=== PATIENT | male | born 1965 | race Two or more races ===

== ENCOUNTER 2022-07-12 20:28 | Inpatient (IN) | payer OTHER, MEDICAID ==
[~2022-07-12] VITALS: Ht 177.8 cm; Wt 81.8 kg
[2022-07-12 21:52] LABS: Basophils # (auto) 0 10 ^3/uL (0-0.2); Basophils % (auto) 0.4 % (0.0-2.0); Eosinophils # (auto) 0 10 ^3/uL (0-0.8); Monocytes # (auto) 0.2 10 ^3/uL (0-1.3); Nucleated Red Blood Cells % 0.4 %
[2022-07-12 21:54] LABS: Eosinophils % (auto) 0.1 % (0.0-7.0); Hematocrit 26.6 % (41.0-53.0); Hemoglobin 7.7 g/dL (13.5-17.5); Lymphocytes # (auto) 0.6 10 ^3/uL (0.4-5.4); Lymphocytes % (auto) 6.8 % (10.0-50.0); Mean Corpuscular Hemoglobin 17.8 pg (28.0-32.0); Mean Corpuscular Hgb Conc. 28.9 g/dL (32.0-36.0); Mean Corpuscular Volume 61.4 fL (80.0-100.0); Monocytes % (auto) 1.9 % (0.0-12.0); Neutrophils # (auto) 7.8 10 ^3/uL (1.6-8.6); Neutrophils % (auto) 90.8 % (37.0-80.0); Red Blood Cells 4.32 10^6/uL (4.5-5.90); White Blood Cell 8.6 10^3/uL (4.4-10.8)
[2022-07-12 22:10] LABS: Albumin 2.4 g/dL (3.4-5.0); BUN/Creatinine Ratio 24.6 (10.0-20.0); Calcium 8.3 mg/dL (8.5-10.1)
[2022-07-12 22:13] LABS: Bilirubin, Total 0.4 mg/dL (0.2-1.0); Total Protein 7.4 g/dL (6.4-8.2)
[2022-07-12 22:15] LABS: Lactic Acid w/Reflex 2.3 mmol/L (0.4-2.0)
[2022-07-13] MEDS ORDERED: diphenhdrAMINE HCL 25 MG CAP PO PRN (00:15)
[2022-07-13] MEDS ORDERED: INSULIN LISPRO (HUMAN) 100 UNITS/ML ML SC ONE ×2 (00:45→03:00)
[2022-07-13] MEDS ORDERED: VANCOMYCIN 1GM/250ML 250 ML IV ONE (03:00)
[2022-07-13] MEDS ORDERED: SODIUM CHLORIDE 0.9% 2,450 ML IV ONE (03:00)
[2022-07-13] MEDS ORDERED: PIPERACILLIN-TAZOB 3.375GM 100 ML IV ONE (03:00)
[2022-07-13 04:41] LABS: % Iron Saturation 3.8 % (20-55)
[2022-07-13] MEDS ORDERED: IBUPROFEN 600 MG TAB PO PRN (04:45)
[2022-07-13] MEDS ORDERED: NITROGLYCERIN 0.4 MG SL TAB SL PRN (04:45)
[2022-07-13] MEDS ORDERED: VANCOMYCIN PER PHARMACY 0 MG IV SCH (04:45)
[2022-07-13] MEDS ORDERED: FUROSEMIDE 40 MG/4 ML VIAL IV ONE (04:45)
[2022-07-13] MEDS ORDERED: HYDROcodone-ACET 5/325MG TAB PO PRN (04:45)
[2022-07-13] MEDS ORDERED: ONDANSETRON HCL 4 MG/2 ML VIAL IV PRN (04:45)
[2022-07-13] MEDS ORDERED: DEXTROSE (50%) 50ML SYRG IV PRN (04:45)
[2022-07-13] MEDS ORDERED: MORPHINE SULFATE INJ 2 MG/ml SYRG IV PRN (04:45)
[2022-07-13] MEDS ORDERED: DOCUSATE SOD 100 MG CAP PO PRN (04:45)
[2022-07-13] MEDS ORDERED: SODIUM CHLOR 0.9% PF (SALINE LOCK) 10ML VIAL/SYR IV SCH (06:00)
[2022-07-13 06:15] LABS: Urine Bacteria NONE SEEN /hpf (None Seen); Urine Blood Negative /uL (Negative); Urine Hyaline Cast FEW /lpf (0 - 2); Urine WBC 1 /hpf (0 - 3)
[2022-07-13 07:38] LABS: Lactic Acid w/Reflex 3.8 mmol/L (0.4-2.0)
[2022-07-13] MEDS: ACCU-CHEK COMFORT CURVE STRIP VI SCH ×2 (08:02→12:00)
[2022-07-13] MEDS: InsuLIN REG 1unit/0.01ml Soln (100units/ml) SC SCH ×2 (08:07→12:00)
[2022-07-13] MEDS ORDERED: FUROSEMIDE 40 MG/4 ML VIAL IV SCH (10:00)
[2022-07-13] MEDS ORDERED: ASPirin 81 mg TAB PO SCH (10:00)
[2022-07-13] MEDS ORDERED: CARVEDILOL 3.125 MG TAB PO SCH (10:00)
[2022-07-13] MEDS ORDERED: SODIUM FERR GLUC 62.5MG/5ML 125 MG in SODIUM CHL 0.9% 100 ML IV ONE (10:15)
[2022-07-13] MEDS ORDERED: SPIRONOLACTONE 25 MG TAB PO SCH (10:15)
[2022-07-13 11:03] LABS: INR 1.19 (0.9-1.15)
[2022-07-13 11:09] LABS: Lactic Acid w/Reflex 2.5 mmol/L (0.4-2.0)
[2022-07-13] MEDS ORDERED: FERROUS SULFATE 325mg EC TAB PO SCH (12:00)
[2022-07-13 12:17] VITALS: BP 105/80
[2022-07-13] MEDS ORDERED: DOCUSATE SOD 100 MG CAP PO SCH (22:00)
== END 2022-07-13 12:20 | disposition short-term general hospital (02) | DRG 432 ==
LOC: ER 20:28 → TELE 07-13 04:40
PROVIDERS: ADMIT Nurse Practitioner Family; ATTEND Internal Medicine
DX: K74.60 Unspecified cirrhosis of liver (principal); I50.31 Acute diastolic (congestive) heart failure; E87.20 Acidosis, unspecified; R18.8 Other ascites; Z20.822 Contact with and (suspected) exposure to COVID-19; E11.22 Type 2 diabetes mellitus with diabetic chronic kidney disease; E11.65 Type 2 diabetes mellitus with hyperglycemia; E88.09 Other disorders of plasma-protein metabolism, not elsewhere classified; I27.20 Pulmonary hypertension, unspecified; D64.9 Anemia, unspecified; N18.9 Chronic kidney disease, unspecified; Z91.041 Radiographic dye allergy status; Z79.82 Long term (current) use of aspirin; Z53.29 Procedure and treatment not carried out because of patient's decision for other reasons
CPT/HCPCS: 36415; 71250; 74176; 80053; 81001; 82962; 83540; 83550; 83605; 83690; 83880; 84484; 85025; 85610; 86850; 86900; 86901; 86920; 87040; 87426; 96361; 96365; 96372; 96375; G0378; J1815; J2543